=== PATIENT | male | born 1955 | race Caucasian/White ===

== ENCOUNTER → 2023-07-22 | Outpatient (CLI) | payer MEDICARE | LOC: M ONCR 08:01 | PROVIDERS: ATTEND General Practice | DX: C79.51 Secondary malignant neoplasm of bone (principal); C25.4 Malignant neoplasm of endocrine pancreas; Z71.2 Person consulting for explanation of examination or test findings ==

== ENCOUNTER 2023-08-08 12:14 | Outpatient (RCR) | payer MEDICARE | END 2023-08-24 | LOC: M ONCR 12:14 | PROVIDERS: ATTEND General Practice | DX: Z51.0 Encounter for antineoplastic radiation therapy (principal); C79.51 Secondary malignant neoplasm of bone ==

== ENCOUNTER → 2024-01-19 | Outpatient (CLI) | payer MEDICARE | LOC: M ONCR 13:34 | PROVIDERS: ATTEND General Practice | DX: C7A.098 Malignant carcinoid tumors of other sites (principal); C79.51 Secondary malignant neoplasm of bone; M25.551 Pain in right hip; Z92.3 Personal history of irradiation ==

== ENCOUNTER 2024-02-03 14:58 | Outpatient (RCR) | payer MEDICARE | END 2024-02-22 | LOC: M ONCR 14:58 | PROVIDERS: ATTEND General Practice | DX: Z51.0 Encounter for antineoplastic radiation therapy (principal); C79.51 Secondary malignant neoplasm of bone ==

== ENCOUNTER 2024-03-04 07:45 | Emergency (ER) | payer MEDICARE ==
[~2024-03-04] VITALS: Ht 177.8 cm; Wt 90.9 kg
[2024-03-04] MEDS: NS 2,730 ML in IV 1 EA IV ONE (09:14)
[2024-03-04] MEDS ORDERED: PANT-23 PO (11:25)
[2024-03-04] MEDS ORDERED: SUCR1TAB56 PO (11:25)
[2024-03-04] MEDS ORDERED: VALA500T5 PO (11:25)
[2024-03-04] MEDS ORDERED: SPIR50TA4 PO (11:25)
[2024-03-04] MEDS ORDERED: FURO20TA2 PO (11:25)
[2024-03-04] MEDS: cefTRIAXone SOD 2 GM in D5W MINI-BAG PLUS 50 ML IV ONE (11:26)
[2024-03-04] MEDS ORDERED: METH2.5T48 PO (11:28)
[2024-03-04 11:31] LABS: VENOUS BASE EXCESS -5.2 (-2.0-2.0); VENOUS O2 SATURATION 64.8 % (60.0-80.0); VENOUS PARTIAL PRESSURE CO2 37.4 mmHg (38.0-50.0); VENOUS PARTIAL PRESSURE O2 36.2 mmHg (30.0-50.0); VENOUS PH 7.346 UNITS (7.330-7.430); VENOUS STANDARD HCO3 19.7 MMOL/L; VENOUS TOTAL CO2 21.1 MMOL/L (24.0-28.0)
[2024-03-04 11:36] LABS: BASO % 0.1 % (0.0-1.0); EOS % 0.1 % (0.0-3.0); HEMATOCRIT 26.1 % (42.0-52.0); HEMOGLOBIN 8.3 g/dl (13.5-17.5); LYMPH # 0.5 10^3/uL (1.5-5.0); LYMPH % 6.3 % (24.0-44.0); MEAN CORPUSCULAR HEMOGLOBIN 29.6 pg (27.0-33.0); MEAN CORPUSCULAR HGB CONC 31.8 g/dl (32.0-36.5); MEAN CORPUSCULAR VOLUME 93.2 fl (80.0-96.0); MONO # 0.4 10^3/uL (0.0-0.8); MONO % 5.1 % (2.0-8.0); NEUTROPHILS # 7.2 10^3/uL (1.5-8.5); NEUTROPHILS % 86.1 % (36.0-66.0); PLATELET COUNT, AUTOMATED 145 10^3/uL (150-450); WHITE BLOOD COUNT 8.3 10^3/uL (4.0-10.0)
[2024-03-04 11:48] LABS: INR 1.57; PARTIAL THROMBOPLASTIN TIME 39.3 SECONDS (24.8-34.2); PROTHROMBIN TIME 18.3 SECONDS (12.5-14.5)
[2024-03-04] MEDS: LIDOCAINE 2% 5ML JELLY UROJET TOP ONE (11:50)
[2024-03-04 12:09] LABS: C REACTIVE PROTEIN QUANTITATIV 6.9 MG/DL (<1.0)
[2024-03-04 12:11] LABS: BILIRUBIN,DIRECT 1.2 MG/DL (<0.4); CALCIUM LEVEL 8.6 MG/DL (8.3-10.6); CREATININE FOR GFR 1.43 MG/DL (0.70-1.30)
[2024-03-04] MEDS ORDERED: RESERVATROL (12:12)
[2024-03-04] MEDS ORDERED: FOLI1TAB11 PO (12:12)
[2024-03-04] MEDS ORDERED: RA N1TAB PO (12:12)
[2024-03-04] MEDS ORDERED: LOSA50TA28 PO (12:12)
[2024-03-04] MEDS ORDERED: THERTAB52 PO (12:12)
[2024-03-04] MEDS ORDERED: CALCTAB89 PO (12:12)
[2024-03-04 12:17] LABS: PROCALCITONIN 0.34 ng/ml
[2024-03-04] MEDS ORDERED: RED1TAB. PO (12:17)
[2024-03-04] MEDS ORDERED: INFL10VL IV (12:17)
[2024-03-04] MEDS ORDERED: ZINC50TA4 PO (12:17)
[2024-03-04] MEDS ORDERED: DORZ2SOL5 OD (12:17)
[2024-03-04] MEDS ORDERED: BRIM0.2S13 OD (12:17)
[2024-03-04] MEDS ORDERED: VITA-198 PO (12:17)
[2024-03-04] MEDS ORDERED: AFIN10TA PO (12:17)
[2024-03-04] MEDS ORDERED: PREDOPD OD (12:17)
[2024-03-04] MEDS ORDERED: HOME MED LIST COMPLETE! XX SCH (12:20)
[2024-03-04 12:24] LABS: APPEARANCE, URINE HAZY (CLEAR); BACTERIA, URINE AUTO NEGATIVE (NEGATIVE); BILIRUBIN, URINE AUTO 1+ (NEGATIVE); BLOOD, URINE BLOOD NEGATIVE (NEGATIVE); CALCIUM OXALATE CRYSTALS SMALL; COLOR, URINE AMBER (YELLOW); GLUCOSE, URINE (UA) AUTO NEGATIVE (NEGATIVE); GRANULAR CAST, URINE AUTO 8 /LPF; KETONE, URINE AUTO NEGATIVE (NEGATIVE); LEUKOCYTE ESTERASE, URINE AUTO NEGATIVE (NEGATIVE); MUCUS, URINE SMALL (NEGATIVE); NITRITE, URINE AUTO NEGATIVE (NEGATIVE); PROTEIN, URINE AUTO 2+ mg/dL (NEGATIVE); RBC, URINE AUTO 2 /HPF (0-3); SPECIFIC GRAVITY URINE AUTO 1.025 (1.002-1.035); SQUAMOUS EPITHELIAL CELL UR AU 0 /HPF (0-6); WBC, URINE AUTO 4 /HPF (0-3)
[2024-03-04] MEDS ORDERED: ISOVUE-370 76% 100ML VIAL As Ordered ONE (13:21)
[2024-03-04 17:28] VITALS: TEMP 97.9
[2024-03-04 21:15] VITALS: BP 109/62; O2SAT 97
== END 2024-03-04 21:38 | disposition short-term general hospital (02) ==
LOC: M ED 07:45
DX: I82.622 Acute embolism and thrombosis of deep veins of left upper extremity (principal); I82.402 Acute embolism and thrombosis of unspecified deep veins of left lower extremity; R94.31 Abnormal electrocardiogram [ECG] [EKG]; I10 Essential (primary) hypertension; Z79.810 Long term (current) use of selective estrogen receptor modulators (SERMs); Z79.52 Long term (current) use of systemic steroids; Z79.899 Other long term (current) drug therapy
CPT/HCPCS: 36415; 51702; 71045; 71275; 74177; 76870; 80048; 80076; 81001; 82150; 82803; 83605; 83880; 84145; 85025; 85610; 85730; 86140; 86850; 86900; 86901; 87040; 87086; 87486; 87581; 87633; 87798; 93005; 93041; 93971; 93976; 94760; 96360; 96361; 96365; 96366; 99285; J0696; Q9967